=== PATIENT | female | born 2005 | race Caucasian/White ===

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

== ENCOUNTER 2024-02-20 07:46 | Outpatient (CLI) | payer OTHER, SELFPAY | END 2024-02-20 07:47 | disposition home or self-care (01) | LOC: NFLDREF 02-21 02:53 | PROVIDERS: Visit Provider Physician Assistant Medical | DX: Z11.3 Encounter for screening for infections with a predominantly sexual mode of transmission (principal) | CPT/HCPCS: 87491; 87591 ==